=== PATIENT | female | born 1985 | race Caucasian/White ===

== ENCOUNTER 2018-09-25 07:28 | Emergency (ER) | payer OTHER ==
--- NOTE | 2018-09-25 07:39 | ED Physician Documentation ---
PD HPI ABD PAIN - Stated complaint Stated Complaint: ABDOMINAL PX - History obtained from History obtained from: Patient - History of Present Illness Timing - onset: How many minutes ago (20) Timing - duration: Minutes (20) Timing - details: Abrupt onset (She states she was awoken from sleep early this morning about 20 minutes ago with the intense pain in the right flank which then radiated to the right abdomen. He did not change with position movement or breathing. She had not had any prior similar episodes. The pain was severe enough that she started heading to the hospital here. On arrival here she had an episode of emesis and then the pain improved over the next couple of minutes. At the time of my coming to the room which was just a few minutes after triage, she states the pain is gone.) Quality: Aching, Sharp, Pain Location: RLQ Radiation: Right flank Improved by: Vomiting (single emesis here, and then pain improved) Worsened by: No: Moving, Breathing, Position Associated symptoms: Nausea. No: Fever, Diarrhea, Constipation, Dysuria Similar symptoms before: Has not had sx before (She initially thought it might be a onset of her menstrual pains when it first started but then it kept ramping up to quite severe and was not like a menstrual pain at that time.) Recently seen: Not recently seen Review of Systems Constitutional: denies: Fever, Chills Nose: denies: Rhinorrhea / runny nose, Congestion Throat: denies: Sore throat Cardiac: denies: Chest pain / pressure Respiratory: denies: Cough GI: reports: Abdominal Pain, Nausea : denies: Dysuria, Frequency, Discharge, Missed period Neurologic: denies: Focal weakness, Near syncope PD PAST MEDICAL HISTORY - Past Medical History Cardiovascular: None Respiratory: None GI: None [employer] DISPATCHER: None : None - Allergies Allergies/Adverse Reactions: Allergies Allergy/AdvReac Type Severity Reaction Status Date / Time No Known Drug Allergies Allergy Verified 09/25/18 07:44 PD ED PE NORMAL - Vitals Vital signs reviewed: Yes - General General: Alert and oriented X 3, No acute distress, Well developed/nourished - Abdomen Abdomen: Normal bowel sounds, Soft, Non tender, Non distended, No organomegaly - Female Female : Deferred - Rectal Rectal: Deferred - Back Back: No CVA TTP - Derm Derm: Normal color - Extremities Extremities: Normal ROM s pain - Neuro Neuro: Alert and oriented X 3, No motor deficit, Normal speech Results - Vitals Vitals: Vital Signs - 24 hr 09/25/18 07:40 Temperature 97.5 C H Heart Rate 70 Respiratory 14 Rate Blood Pressure 102/54 L O2 Saturation 98 Oxygen O2 Source Room air - Labs Labs: Laboratory Tests 09/25/18 08:00 Urine Color YELLOW Urine Clarity CLOUDY Urine pH 6.5 Ur Specific [place] 1.020 Urine Protein NEGATIVE Urine Glucose (UA) NEGATIVE Urine Ketones NEGATIVE Urine Occult Blood MODERATE H Urine Nitrite NEGATIVE Urine Bilirubin NEGATIVE Urine Urobilinogen 0.2 (NORMAL) Ur Leukocyte Esterase NEGATIVE Urine RBC TNTC H Urine WBC 0-3 Ur Squamous Epith Cells MANY Squamous H Urine Bacteria Many H Ur Microscopic Review INDICATED Urine Culture Comments NOT INDICATED Urine HCG, Qual NEGATIVE PD MEDICAL DECISION MAKING - ED course Complexity details: considered differential (Given the location along with the abruptness in severity and now completely gone, I be most inclined to think she passed a small kidney stone. Given the complete cessation of pain, at its most likely passed as opposed to just dormant. However we will see if she has recurring pain in the next half hour or so while we wait for urine test. Also consider biliary colic, intestinal spasm, ruptured cyst or UTI. However the biliary colic and the ruptured cyst I think would still have some residual tenderness. Intestinal spasm may not still hurt so that would be a possibility still. A passed kidney stone would not have any further tenderness and so I think that sounds most likely especially with the area of her pain from the right flank down to the right lower abdomen. Appendicitis or colitis would be very unlikely given this pattern.), d/w patient Departure - Departure Disposition: 01 Home, Self Care Clinical Impression: Acute right flank pain Condition: Stable Record reviewed to determine appropriate education?: Yes Instructions: ED Stone Renal Passed, ED Flank Pain Uncertain Cause Follow-Up: [facility] Ameenajassi Veronica [Provider Group] Comments: Tylenol or ibuprofen if needed for mild recurrent pain. Given the abruptness of it and now completely gone and location of it, I am inclined to think you had a very small kidney stone that you passed. Likely it was brief and did not last the hours or days that sometimes can. Other considerations would be an intestinal cramp or spasm. Less likely would be a gallbladder spasm or ovarian cyst or torsion as I think those would still have some tenderness. It does not sound like appendicitis or process that would need other intervention. Recheck if recurrent pain severely. Follow-up with your primary care if you have persistent pains later through the weekend or subsequent episodes in the near future.
[2018-09-25 07:44] VITALS: BP 102/54
[2018-09-25 08:10] LABS: BILIRUBIN,URINE NEGATIVE (NEGATIVE); GLUCOSE, URINE (UA) NEGATIVE (NEGATIVE); KETONES,URINE (UA) NEGATIVE (NEGATIVE); LEUKOCYTE ESTERASE, URINE NEGATIVE (NEGATIVE); NITRITE,URINE NEGATIVE (NEGATIVE); OCCULT BLOOD,URINE MODERATE (NEGATIVE); PH,URINE 6.5 PH (5.0-7.5); PROTEIN,URINE NEGATIVE (NEGATIVE); UROBILINOGEN,URINE 0.2 (NORMAL) E.U./dL (NORMAL)
[2018-09-25 08:13] LABS: CLARITY,URINE CLOUDY (CLEAR); HCG UR QUAL NEGATIVE
[2018-09-25 08:31] LABS: BACTERIA,URINE Many /HPF (None Seen); RBC,URINE TNTC /HPF (0-5); SQUAMOUS EPITHELIAL CELL,UR MANY Squamous (<= Few)
== END 2018-09-25 09:03 | disposition home or self-care (01) ==
LOC: ED 07:28
DX: R10.31 Right lower quadrant pain (principal)
CPT/HCPCS: 81001; 81003; 81025; 87086; 99283

== ENCOUNTER 2018-09-26 19:40 | Emergency (ER) | payer OTHER ==
[2018-09-26] MEDS ORDERED: ONDANSETRON ODT 4 MG TABLET TL STA (19:59)
--- NOTE | 2018-09-26 20:01 | ED Physician Documentation ---
PD HPI ABD PAIN - Stated complaint Stated Complaint: ABD PX/VOMITING - Chief complaint Chief Complaint: Abd Pain - History obtained from History obtained from: Patient - History of Present Illness Timing - onset: Other (She had severe right abd and flank pain yesterday which had resolved on emergency department visit showing large hematuria. Presumed renal colic. Pain recurred and has been waxing and waning after the visit ever since and she is been vomiting today. Note that she is driving today and does not want anything strong for pain, she more wants answers and prognosis.) Review of Systems Constitutional: denies: Fever, Chills GI: reports: Abdominal Pain, Nausea, Vomiting. denies: Diarrhea : denies: Dysuria, Frequency, Hematuria PD PAST MEDICAL HISTORY - Past Medical History Past Medical History: Yes Cardiovascular: None Respiratory: None Neuro: None Endocrine/Autoimmune: None GI: None T[employer] SERVICES SPECIALIST: None : None HEENT: None Psych: None Musculoskeletal: None - Past Surgical History Past Surgical History: No - Present Medications Home Medications: Ambulatory Orders Medication Instructions Recorded Confirmed Hydrocodone/Acetaminophen 1 - 2 each PO Q6H PRN #14 tablet 09/26/18 [Hydrocodon-Acetaminophen 5-325] Ondansetron Odt [Zofran] 4 mg TL Q6H PRN #10 tablet 09/26/18 Tamsulosin [Flomax] 0.4 mg PO DAILY #14 capsule 09/26/18 - Allergies Allergies/Adverse Reactions: Allergies Allergy/AdvReac Type Severity Reaction Status Date / Time No Known Drug Allergies Allergy Verified 09/26/18 19:51 - Social History Does the pt smoke?: No Smoking Status: Never smoker Does the pt drink ETOH?: No Does the pt have substance abuse?: No - Immunizations Immunizations are current?: Yes - POLST Patient has POLST: No PD ED PE NORMAL - Vitals Vital signs reviewed: Yes - General General: Alert and oriented X 3, No acute distress - Abdomen Abdomen: Normal bowel sounds, Soft, Non tender - Back Back: No CVA TTP, No spinal TTP - Neuro Neuro: Alert and oriented X 3, Normal speech Results - Vitals Vitals: Vital Signs - 24 hr 09/26/18 19:43 Temperature 36.0 C L Heart Rate 69 Respiratory 16 Rate Blood Pressure 111/62 O2 Saturation 99 Oxygen O2 Source Room air - Labs Labs: Laboratory Tests 09/26/18 09/26/18 20:10 20:10 WBC 9.3 RBC 4.60 Hgb 14.2 Hct 42.1 MCV 91.6 MCH 30.8 MCHC 33.6 RDW 12.9 Plt Count 181 MPV 7.5 L Neut # (Auto) 8.3 H Lymph # (Auto) 0.7 L [place] # (Auto) 0.3 Eos # (Auto) 0.0 Baso # (Auto) 0.0 Absolute Nucleated RBC 0.00 Nucleated RBC % 0.0 Sodium 137 Potassium 3.6 Chloride 105 Carbon Dioxide 26 Anion Gap 6.0 BUN 9 Creatinine 0.7 Estimated GFR (MDRD) 98 Glucose 106 H Calcium 8.8 Total Bilirubin 1.2 H AST 21 ALT 18 Alkaline Phosphatase 40 L Total Protein 7.5 Albumin 4.5 Globulin 3.0 Albumin/Globulin Ratio 1.5 Lipase 34 - Rads (name of study) CT KUB Radiology: EMP read contemporaneously (Multiple bilateral renal calculi and a 5 x 3 mm UVJ stone on the right. Left ovarian cyst.) PD MEDICAL DECISION MAKING - ED course ED course: 32-year-old woman with clinical renal colic confirmed on CT and discuss results and need for follow-up. Departure - Departure Disposition: 01 Home, Self Care Clinical Impression: Acute right flank pain, Cyst of ovary, Renal colic Condition: Good Record reviewed to determine appropriate education?: Yes Instructions: ED Stone Renal W Colic Prescriptions: Hydrocodone/Acetaminophen [Hydrocodon-Acetaminophen 5-325] 1 - 2 each PO Q6H PRN #14 tablet PRN Reason: pain Ondansetron Odt [Zofran] 4 mg TL Q6H PRN #10 tablet PRN Reason: Nausea / Vomiting Tamsulosin [Flomax] 0.4 mg PO DAILY #14 capsule Comments: [place] Discussed urology referral and/or stone collection for analysis. Return for new or worsening symptoms. Also have a left ovarian cyst and need a repeat ultrasound in 6-12 weeks to ensure resolution. Forms: Activity restrictions
[2018-09-26] MEDS: IBUPROFEN 800 MG TABLET PO STA ×2 (20:05→20:10)
[2018-09-26 20:16] LABS: BASOPHILS % (AUTO) 0.1 %; EOSINOPHILS % (AUTO) 0.2 %; HGB - HEMOGLOBIN 14.2 g/dL (12.0-16.0); LYMPHOCYTES # (AUTO) 0.7 10^3/uL (1.5-3.5); LYMPHOCYTES % (AUTO) 7.5 %; MEAN CORPUSCULAR HEMOGLOBIN 30.8 pg (27.0-31.0); MEAN CORPUSCULAR HGB CONC 33.6 g/dL (32.0-36.0); MEAN CORPUSCULAR VOLUME 91.6 fL (81.0-99.0); MEAN PLATELET VOLUME 7.5 fL (7.9-10.8); MONOCYTES # (AUTO) 0.3 10^3/uL (0.0-1.0); MONOCYTES % (AUTO) 2.7 %; NEUTROPHILS # (AUTO) 8.3 10^3/uL (1.5-6.6); NEUTROPHILS % (AUTO) 89.5 %; PLT - PLATELET COUNT 181 10^3/uL (130-450); RED CELL DISTRIBUTION WIDTH 12.9 % (12.0-15.0); WHITE BLOOD COUNT 9.3 x10^3/uL (4.8-10.8)
[2018-09-26 20:28] LABS: ALBUMIN 4.5 g/dL (3.2-5.5); ALBUMIN/GLOBULIN RATIO 1.5 (1.0-2.2); BILIRUBIN,TOTAL 1.2 mg/dL (0.2-1.0); CALCIUM 8.8 mg/dL (8.5-10.3); CREATININE 0.7 mg/dL (0.4-1.0); TOTAL PROTEIN 7.5 g/dL (6.7-8.2)
--- NOTE | 2018-09-26 20:56 | CT Report ---
Reason: R flank pain Procedure Date: 09/26/2018 Accession Number: [id number] / [id number] Procedure: CT - Abdomen/Pelvis W/O CPT Code: FULL RESULT: EXAM: CT ABDOMEN AND PELVIS (CT KUB) EXAM DATE: 09/26/2018 08:26 PM. CLINICAL HISTORY: Right flank pain. COMPARISONS: None. TECHNIQUE: Routine axial helical CT imaging was performed through the abdomen and pelvis without IV contrast. Reconstructions: Coronal and sagittal. In accordance with CT protocol optimization, one or more of the following dose reduction techniques were utilized for this exam: automated exposure control, adjustment of mA and/or KV based on patient size, or use of iterative reconstructive technique. FINDINGS: Lung Bases: Unremarkable. Kidneys: Moderate right hydronephrosis with hydroureter being caused by a ureterovesicular junction calculus measuring 5 x 3 mm. Multiple bilateral renal calculi, largest at the left midpole measuring 4 mm. Other Solid Organs: Noncontrast images of the solid organs are grossly unremarkable. Gallbladder/Bile Ducts: Unremarkable. Peritoneal Cavity: No free fluid, free air or dalia adenopathy. Bowel is grossly unremarkable. Pelvic Organs: There is an intrauterine device in place. Left ovarian cyst measuring 4.6 x 2.7 cm. The bladder is decompressed. Vasculature: Unremarkable. Other: No acute bone findings. IMPRESSION: 1. Moderate right hydronephrosis with hydroureter being caused by a ureterovesicular junction calculus measuring 5 x 3 mm. 2. Multiple bilateral renal calculi, largest at the left midpole measuring 4 mm. 3. Left ovarian cyst measuring 4.6 x 2.7 cm. Recommend a 6-12 week follow-up pelvic ultrasound to ensure resolution. [facility]
[2018-09-26] MEDS ORDERED: HYDROcod/ACET 5/325 Prepack 4 PO STA (21:12)
[2018-09-26] MEDS ORDERED: TAMSULOSIN 0.4 MG CAPSULE PO STA (21:13)
[2018-09-26 21:26] VITALS: BP 105/61
== END 2018-09-26 21:30 | disposition home or self-care (01) ==
LOC: ED 19:40
DX: N13.2 Hydronephrosis with renal and ureteral calculous obstruction (principal); N83.202 Unspecified ovarian cyst, left side
CPT/HCPCS: 36415; 74176; 80053; 83690; 85025; 99283; A9270; Q0162